=== PATIENT | male | born 1980 | race Caucasian/White ===

== ENCOUNTER 2023-02-27 09:47 | Outpatient (CLI) | payer SELFPAY | END 2023-02-27 09:48 | disposition home or self-care (01) | PROVIDERS: PCP Physician Assistant; Visit Provider Physician Assistant | DX: I49.9 Cardiac arrhythmia, unspecified (principal) | CPT/HCPCS: 93270 ==

== ENCOUNTER 2023-04-03 09:43 | Outpatient (CLI) | payer SELFPAY ==
--- NOTE | 2023-04-03 11:23 | W.CARDEVENT ---
Date of service: 04/03/23 Time of Service: 11:23 Cardiac Event Recorder Referring Provider:: Taye Posey Indications:: Cardiac arrhythmia Cardiac Event Note: This is a cardiac event monitor ordered for cardiac arrhythmia. Patient was monitored for a total of 22 days and 8 hours Rhythm throughout was sinus with an average heart rate of 71. Minimum was 55, maximum 153 No significant atrial or ventricular dysrhythmias were recorded. Specifically there was no atrial fibrillation, no SVT. There was no high-grade AV block or pauses greater than 3 seconds Patient symptoms corresponded to sinus rhythm
== END 2023-04-03 09:44 | disposition home or self-care (01) ==
LOC: CARDOPNVT 09:43
PROVIDERS: PCP Physician Assistant; Visit Provider Internal Medicine Cardiovascular Disease
DX: I49.9 Cardiac arrhythmia, unspecified (principal)

== ENCOUNTER 2023-08-09 08:46 | Outpatient (REF) | payer SELFPAY ==
[2023-08-09 15:27] LABS: ESR 10 mm/hr (0-15); HCT 44.7 % (40.0-50.0); MCH 32.8 pg (27.0-33.0); MCHC 33.6 % (32.0-36.0); MCV 98 fL (80-95); MPV 10.5 fL (8.0-11.0); Platelet Count 246 10^3/uL (130-400); RBC 4.58 10^6/uL (4.36-5.78); RDW 12.3 % (11.8-14.1); WBC 5.48 10^3/uL (4.4-10.8)
[2023-08-09 16:55] LABS: ALT 37 U/L (16-63); AST 26 U/L (15-37); Albumin 4.4 g/dL (3.4-5.0); Alkaline Phosphatase 50 U/L (46-116); Anion Gap 9.3 mmol/L (3-11); BUN 14 mg/dL (7-18); Bilirubin, Total 0.8 mg/dL (0.2-1.0); CO2 28.7 mmol/L (21.0-32.0); CREATININE 0.7 mg/dL (0.70-1.30); Calcium 9.1 mg/dL (8.5-10.1); Calculated LDL 141 mg/dL (<100); Chloride 102 mmol/L (98-107); Cholesterol 223 mg/dL (<200); Estimated GFR 116.52 (mL/min/1.73m2); Glucose 103 mg/dL (74-106); HDL Cholesterol 73 mg/dL (40-60); Potassium 4.4 mmol/L (3.5-5.1); Sodium 140 mmol/L (136-145); TSH 0.92 uIU/mL (0.36-3.74); Triglyceride 49 mg/dL (<150)
[2023-08-09 17:22] LABS: FREE T4 0.97 ng/dL (0.76-1.46)
[2023-08-14 16:57] LABS: Testosterone, Total 379 ng/dL (240-950)
== END 2023-08-09 08:47 | disposition home or self-care (01) ==
LOC: NCHCN 08:46
PROVIDERS: PCP Physician Assistant; Visit Provider Physician Assistant
DX: R53.83 Other fatigue (principal)
CPT/HCPCS: 80053; 80061; 84403; 85027; 85652; 84439; 84443

== ENCOUNTER 2023-08-22 10:52 | Emergency (ER) | payer SELFPAY ==
[2023-08-22 10:56] VITALS: BP 143/76; PULSE 80; RESP 18; TEMP 36.8; O2SAT 97
[2023-08-22 12:48] VITALS: BP 119/87; PULSE 74; RESP 18; O2SAT 99
[2023-08-22] MEDS: Erythromycin Ophth Oint 3.5 GM TUBE OP (13:11)
[2023-08-22] MEDS: Balanced Salt Solution 15 ML BTL OP (13:11)
[2023-08-22] MEDS: Tetracaine 0.5% 4 ML BTL OP (13:12)
--- NOTE | 2023-08-22 13:33 | ED.GENADUL_ITS ---
Discharge Plan Disposition Patient Disposition: Home Condition: Stable Discharge Details Clinical Impression: Corneal abrasion, right Primary Care Provider: Taye Posey ED Provider: Zachariah Karimi Home Meds and New Rx's Prescriptions: New erythromycin 5 mg/gram (0.5 %) ointment 0.5 inch ophthalmic (eye) QID Qty: 3.5 0RF Continued sotalol 80 mg tablet 80 mg PO BID Patient Comments: TAKE 1 TABLET BY MOUTH TWICE DAILY Discharge Instructions Instructions: Erythromycin (Into the eye), Corneal Abrasion (ED) Additional Instructions: By 0.5 inch ribbon of antibiotic ointment erythromycin to the right eye every 6 hours for the next 1 week. Please follow-up with eye resident care assistant for follow-up examination this week. Please contact your primary care physician to arrange follow-up. Return to the ER immediately for any worsening or new concerning symptoms. Referrals: [facility] [Outside] Medical Decision Making 43-year-old male here with injury to his right eye that occurred yesterday while working with wood. Visual acuity normal in right eye. Lids everted and no foreign body present. Tetracaine applied and patient had complete resolution of discomfort. Fluorescein stain used to visualize small corneal abrasion at 4:00. Negative Gretel sign. Plan for erythromycin ointment and follow-up with eye resident care assistant. Tetanus up-to-date as of 2015 per pcp records. Usual customary discharge instructions reviewed with the patient. HPI General Mode of arrival: ambulatory . Date/Time Provider Initiated Documentation: 08/22/23 12:44 . Limitations to Documentation: no limitations . Information obtained by: patient . HPI Narrative: 43-year-old male presents with chief complaint of eye pain. Patient notes he was working with [employer] yesterday and got a piece of wood in his eye. He flushed his eye. I was uncomfortable last night. When he woke up this morning pain was resolved and then slowly this morning pain has worsened. Patient notes he feels like there is something in his eye. No associated visual change. Related Data Home Medications Medication Instructions Recorded Confirmed erythromycin 5 mg/gram (0.5 %) eye 0.5 inch ophthalmic (eye) QID #3.5 08/22/23 ointment grams sotalol 80 mg tablet 80 mg PO BID 08/22/23 08/22/23 Previous Rx's Medication Instructions Recorded erythromycin 5 mg/gram (0.5 %) eye 0.5 inch ophthalmic (eye) QID #3.5 08/22/23 ointment grams Allergies Allergy/AdvReac Type Severity Reaction Status Date / Time No Known Allergies Allergy Unverified 08/22/23 13:06 General Stated Complaint: EyeProblem MARIO: 4 Review of Systems Eyes Eyes: Reports as per HPI PFSH All Active Problems Corneal abrasion, right (Acute) Social History Smoking risk assessment performed?: No Drug use: Never Do you feel safe at home: Yes Do you feel safe in your relationship?: Yes Exam Eyes Alignment and Position: alignment normal Periorbital: periorbital findings normal Eyelids: eyelids normal Sclera: sclerae normal Cornea: corneas abnormal on the right fluorescein used and abrasion (4:00) Pupils: PERRL EOM: EOM intact bilaterally Course Vital Signs Vital signs: Vital Signs Temperature 36.8 C 08/22/23 10:56 Pulse 80 08/22/23 10:56 Respiratory Rate 18 08/22/23 10:56 Blood Pressure 143/76 H 08/22/23 10:56 Pulse Oximetry 97 08/22/23 10:56 Temperature 36.8 C 08/22/23 10:56 Temperature Source Oral 08/22/23 10:56 Pulse 74 08/22/23 12:48 Respiratory Rate 18 08/22/23 12:48 Respiratory Effort Normal, Non-Labored 08/22/23 13:04 Blood Pressure 119/87 08/22/23 12:48 Blood Pressure Position Supine 08/22/23 10:56 Pulse Oximetry 99 08/22/23 12:48 Oxygen Delivery Method Room Air 08/22/23 12:48 Oxygen Flow Rate 0 08/22/23 12:48 Pain Level 7 08/22/23 10:56
== END 2023-08-22 13:52 | disposition home or self-care (01) ==
PROVIDERS: Emergency Provider Student in an Organized Health Care Education/Training Program; PCP Physician Assistant
DX: S05.01XA Injury of conjunctiva and corneal abrasion without foreign body, right eye, initial encounter (principal); W20.8XXA Other cause of strike by thrown, projected or falling object, initial encounter; Y93.89 Activity, other specified; Y92.89 Other specified places as the place of occurrence of the external cause; Y99.8 Other external cause status
CPT/HCPCS: 99282

== ENCOUNTER 2025-07-03 18:46 | Outpatient (REF) | payer SELFPAY ==
[2025-07-03 18:51] LABS: HCT 40.8 % (40.0-50.0); HGB 13.8 g/dL (13.5-17.5); MCH 31.9 pg (27.0-33.0); MCHC 33.8 % (32.0-36.0); MCV 94 fL (80-95); MPV 10.6 fL (8.0-11.0); Platelet Count 223 10^3/uL (130-400); RBC 4.32 10^6/uL (4.36-5.78); RDW 11.8 % (11.8-14.1); RDW-SD 41.0 fL; WBC 5.96 10^3/uL (4.4-10.8)
[2025-07-03 19:02] LABS: ALT 40 U/L (16-63); AST 22 U/L (15-37); Albumin 4.4 g/dL (3.4-5.0); Alkaline Phosphatase 55 U/L (46-116); Anion Gap 10.2 mmol/L (3-11); BUN 16 mg/dL (7-18); Bilirubin, Total 0.5 mg/dL (0.2-1.0); CO2 27.8 mmol/L (21.0-32.0); Calcium 9.1 mg/dL (8.5-10.1); Chloride 102 mmol/L (98-107); Creatine Kinase 193 U/L (39-308); Estimated GFR 115.08 (mL/min/1.73m2); Glucose 99 mg/dL (74-106); Potassium 4.0 mmol/L (3.5-5.1); Sodium 140 mmol/L (136-145); Total Protein 7.6 g/dL (6.4-8.2)
== END 2025-07-03 18:47 | disposition home or self-care (01) ==
LOC: NCHCN 18:46
PROVIDERS: PCP Physician Assistant; Visit Provider Physician Assistant
DX: J02.9 Acute pharyngitis, unspecified (principal)
CPT/HCPCS: 80053; 82550; 85027